=== PATIENT | male | born 1945 | race African-American/Black ===

== ENCOUNTER → 2017-05-19 | Outpatient (CLI) | payer OTHER ==
[~2017-05-19] MED LIST: AMLODIPINE BESY10 MG; BYSTOLIC20 MG PO; CLOPIDOGREL BIS75 MG PO; COQ-10100 MG PO; GLIPIZIDE10 MG PO; HYDROCHLOROTHIA25 MG; LANTUS SOL100 UNIT/1; METFORMIN HCL850 MG PO; MULTI VITAMIN1 EACH; PANTOPRAZOLE SO40 MG PO; TUMERIC CURCUMIN PO
[2017-05-19 14:03] LABS: HEMATOCRIT 39.1 % (38.0-50.0); HEMOGLOBIN 12.8 gm/dL (13.0-16.0); MEAN CORPUSCULAR HEMOGLOBIN 29.2 PG (28-34); MEAN CORPUSCULAR HGB CONC 32.8 g/dL (30-36); MEAN PLATELET VOLUME 9.2 FL (6.5-11.5); RED BLOOD COUNT 4.4 X10e (3.90-5.60); RED CELL DISTRIBUTION WIDTH 13.9 % (11.0-15.5)
[2017-05-19 14:52] LABS: ALBUMIN SERUM 3.7 g/dL (3.5-5.0); BILIRUBIN,TOTAL 0.5 mg/dL (0.2-2.0); BUN/CREATININE RATIO 21.66; CALCIUM SERUM 9.2 mg/dL (8.4-10.2); CREATININE SERUM 1.2 mg/dL (0.6-1.4); GLOM FILT RATE Estimated 71.1 mL/min (>60); POTASSIUM 4.4 mmol/L (3.5-5.1); PROTEIN TOTAL SERUM 6.7 g/dL (6.0-8.3)
== END | disposition home or self-care (01) ==
LOC: CLAB 13:27
PROVIDERS: Internal Medicine
DX: R10.9 Unspecified abdominal pain (principal)
CPT/HCPCS: 36415; 80053; 85027

== ENCOUNTER → 2017-05-25 | Day surgery (SDC) | payer OTHER ==
--- NOTE | ~2017-05-25 | OR ---
Unit #: [id number] #: [id number] Patient: CHENTE DAVILA [id number] [address] [place], [place] [address] [id number] O MR#: [id number] NAME: CHENTE DAVILA ROOM: Date of Procedure: 05/25/2017 Admission Date: 05/25/2017 Surgeon: Leon Murillo M.D. : 1945 Attending Physician: Leon Murillo M.D. Referring Physician: Leon Murillo M.D. Primary Care Physician: Kumar Diane Sr., M.D. OPERATIVE REPORT PROCEDURE PERFORMED Esophagogastroduodenoscopy with biopsy. INDICATIONS FOR PROCEDURE The patient with significant epigastric and right upper quadrant pain, undergoing evaluation with upper endoscopy. MEDICATIONS Monitored anesthesia. POSTOPERATIVE FINDINGS 1. Esophagitis along with the esophageal ring that is nonobstructing and a moderate sized hiatal hernia. 2. Gastroduodenitis, mild, biopsies taken. PLAN 1. PPI therapy. 2. Follow up on pathology report. DESCRIPTION OF PROCEDURE The patient was explained of the procedure, risks, and benefits along with risks and benefits of anesthesia. He was brought to the endoscopy room. Propofol anesthesia was given. Bite block was placed. The scope was passed down the mouth into the esophagus, stomach, duodenum, and distal duodenum. Findings as described. Biopsies taken. Gently, I pulled the scope out of the patient's mouth. He tolerated it well. No immediate complications were seen. Dictated by... Terra Leggett/ayanna TD: 05/26/2017 04:39 JOB #: [id number] Unit #: [id number] #: [id number] Patient: CHENTE DAVILA OPERATIVE REPORT Page 1 of 1 X Leon Murillo MD X PROCEDURE OPERATIVE NOTE
== END | disposition home or self-care (01) ==
LOC: COPS 06:56
DX: K21.0 Gastro-esophageal reflux disease with esophagitis (principal); K22.2 Esophageal obstruction; K44.9 Diaphragmatic hernia without obstruction or gangrene; K29.90 Gastroduodenitis, unspecified, without bleeding; E11.9 Type 2 diabetes mellitus without complications; Z79.4 Long term (current) use of insulin; Z79.84 Long term (current) use of oral hypoglycemic drugs; I50.9 Heart failure, unspecified; N40.0 Benign prostatic hyperplasia without lower urinary tract symptoms
CPT/HCPCS: 82947; 88305; 88312

== ENCOUNTER → 2017-05-31 | Outpatient (CLI) | payer OTHER ==
--- NOTE | ~2017-05-31 | CT4 ---
[facility] A Service of [facility] RADIOLOGY TEXT RESULTS PATIENT: CHENTE DAVILA SR [facility] [birth year] UNIT #: [id number] AGE: [address]: Leon Murillo MD SEX: M ORDER DR: [id number] [facility] [address]. [place], [place] [address] [id number] O MR#: [id number] Acc #: [id number] NAME: CHENTE DAVILA : 1945 SEX: M STUDY DATE/TIME: 05/31/2017 15:39 UNIT: CCAT ROOM: STUDY DESCRIPTION: CT Abd and Pelv Wo Cont Attending Physician: Leon Murillo M.D. Referring Physician: Leon Murillo M.D. Ordering Physician: Leon Murillo M.D. Primary Care Physician: Kumar Diane Sr., M.D. MEDICAL IMAGING REPORT This report is preliminary unless electronic signature is present EXAM CT abdomen and pelvis INDICATIONS Right upper quadrant abdominal pain. 4-month duration. TECHNIQUE CT abdomen and pelvis without contrast. Coronal and sagittal reconstructions were obtained. This CT exam was performed with one or more of the following radiation dose reduction techniques: automatic exposure control, adjustment of mA and/or kV according to patient size, and iterative reconstruction. COMPARISON None available. FINDINGS ABDOMEN: The heart is enlarged. Noncontrast evaluation of the liver, pancreas, spleen, and kidneys is within normal limits. There is no hydronephrosis. There are 2 right adrenal nodules. The low-attenuation nodules are consistent with benign adenomas. The bowel is not dilated. Gallbladder is surgically absent. The appendix is normal. There are no enlarged retroperitoneal or mesenteric lymph nodes. There are occasional colonic diverticula in the left side of the colon. The abdominal aorta is normal in caliber. PELVIS: No pelvic mass. The bladder is unremarkable. No enlarged pelvic or inguinal lymph nodes. IMPRESSION [facility] A Service of [facility] RADIOLOGY TEXT RESULTS PATIENT: CHENTE DAVILA SR [facility] [birth year] UNIT #: [id number] AGE: [address]: Leon Murillo MD SEX: M ORDER DR: 1. No acute findings in the abdomen or pelvis. No findings to account for the patient's symptoms. 2. Benign left adrenal adenomas. Dictated by... Nolberto Vo M.D. THIS IS AN ELECTRONICALLY VERIFIED REPORT Nolberto Vo M.D. at 06/03/2017 6:04 AM WILLIAM/blanco TD: 06/01/2017 17:55 JOB #: [id number] MEDICAL IMAGING REPORT Page 1 of 1 COPY
== END | disposition home or self-care (01) ==
LOC: CCAT 14:33
DX: R10.11 Right upper quadrant pain (principal); R10.84 Generalized abdominal pain; D35.02 Benign neoplasm of left adrenal gland
CPT/HCPCS: 74176